=== PATIENT | female | born 1985 | race Caucasian/White ===

== ENCOUNTER 2019-07-05 13:25 | Emergency (ER) | payer BC, OTHER ==
--- NOTE | 2019-07-05 14:13 | ER Document Report ---
ED Medical Screen (RME) - General Chief Complaint: Numbness Stated Complaint: ARM/LEG NUMBNESS Time Seen by Provider: 07/05/19 14:09 Primary Care Provider: ARMAAN GODWIN MD [Primary Care Provider] - Follow up as needed Mode of Arrival: Ambulatory Information source: Patient Notes: 33-year-old female presented to ED for complaint of numbness to her arms and legs. She states she was driving down the road and all of a sudden she started getting numbness to her hands and feet arms and legs. She states she has had this about 2 years ago but it was concerning because it felt almost like there was something crawling under her skin this time. She states she was recently diagnosed with bacterial vaginosis and was started on medications for 5 days ago. She states that sensation is less now but she can still feel it. 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 Last menstrual cycle to 02 July. Smokes marijuana and cigarettes. I have greeted and performed a rapid initial assessment of this patient. A comprehensive ED assessment and evaluation of the patient, analysis of test results and completion of medical decision making process will be conducted by an additional ED providers. TRAVEL OUTSIDE OF THE [place] IN LAST 30 DAYS: No Physical Exam - Vital signs Vitals: Temp Pulse Resp BP Pulse Ox 98.1 F 89 18 147/93 H 99 07/05/19 13:31 07/05/19 13:31 07/05/19 13:31 07/05/19 13:31 07/05/19 13:31 Course - Vital Signs Vital signs: Temp Pulse Resp BP Pulse Ox 98.1 F 89 18 147/93 H 99 07/05/19 13:31 07/05/19 13:31 07/05/19 13:31 07/05/19 13:31 07/05/19 13:31 Doctor's Discharge - Discharge Referrals: ARMAAN GODWIN MD [Primary Care Provider] - Follow up as needed
[2019-07-05 14:48] LABS: BASOPHILS % (AUTO) 0.5 % (0-2); TOTAL CELLS COUNTED % (AUTO) 100 %
[2019-07-05 14:54] LABS: APPEARANCE,URINE SLIGHTLY-CLOUDY; BILIRUBIN,URINE NEGATIVE (NEGATIVE); COLOR,URINE YELLOW; GLUCOSE, URINE NEGATIVE (NEGATIVE); KETONES,URINE NEGATIVE (NEGATIVE); PROTEIN,URINE NEGATIVE (NEGATIVE); URINE SPECIFIC GRAVITY 1.027; UROBILINOGEN,URINE NEGATIVE mg/dL (<2.0)
[2019-07-05 14:55] LABS: ABSOLUTE EOSINOPHILS # (AUTO) 0.1 10^3/uL (0.0-0.6); ABSOLUTE LYMPHOCYTES (AUTO) 2.3 10^3/uL (0.5-4.7); ABSOLUTE MONOCYTES (AUTO) 0.6 10^3/uL (0.1-1.4); HEMOGLOBIN 14.8 g/dL (12.0-15.5); LYMPHOCYTES % (AUTO) 33.4 % (13-45); MEAN CORPUSCULAR HEMOGLOBIN 32.3 pg (27.0-33.4); MEAN CORPUSCULAR HGB CONC 35.1 g/dL (32.0-36.0); MEAN CORPUSCULAR VOLUME 92 fl (80-97); PLATELET COUNT 321 10^3/uL (150-450); RED BLOOD COUNT 4.57 10^6/uL (3.72-5.28); SEGMENTED NEUTROPHILS % (AUTO) 57.1 % (42-78)
[2019-07-05 15:12] LABS: ALBUMIN 4.5 g/dL (3.5-5.0); ALKALINE PHOSPHATASE 83 U/L (38-126); ANION GAP 10 (5-19); ASPARTATE AMINO TRANSFERASE 36 U/L (14-36); BILIRUBIN,DIRECT 0.1 mg/dL (0.0-0.4); BILIRUBIN,TOTAL 0.5 mg/dL (0.2-1.3); BLOOD UREA NITROGEN 8 mg/dL (7-20); CALCIUM 9.6 mg/dL (8.4-10.2); CARBON DIOXIDE 25 mmol/L (22-30); CHLORIDE 104 mmol/L (98-107); GLUCOSE 78 mg/dL (75-110); POTASSIUM 3.8 mmol/L (3.6-5.0); TOTAL PROTEIN 8.1 g/dL (6.3-8.2)
[2019-07-05 17:40] VITALS: BP 123/86
--- NOTE | 2019-07-05 22:06 | ER Document Report ---
Entered by NAREN YANES SCRIBE 07/05/19 1726 Acting as scribe for:RYLEE SADLER DO ED General - General Chief Complaint: Numbness of Arm Stated Complaint: ARM/LEG NUMBNESS Time Seen by Provider: 07/05/19 14:09 Primary Care Provider: ARMAAN GODWIN MD [COMMUNITY BASED STAFF] - Follow up in 3-5 days Mode of Arrival: Ambulatory Information source: Patient Notes: Patient is a 33-year-old female who presents to the emergency department today with complaints of bilateral arm and leg numbness and tingling which began prior to arrival. Patient states she had just gotten into her car to drive home from work when the symptoms began. Patient states the symptoms lasted up until about the time that she arrived here which was about 15 minutes. Patient states after arrival here all of her symptoms subsided and she is completely back to baseline. Patient states she had something somewhat similar to this about 2 years ago. Patient states at that time she had just gotten out of bed and she had bilateral leg weakness which spontaneously went away as well. Patient states she does not feel like she was anxious or hyperventilating but she does mention that she noticed that after she first started feeling the symptoms she did begin to get nervous and the symptoms became worse. Patient states she was driving when this occurred and she had no weakness and was able to continue driving. Patient does admit to smoking cigarettes and smoking marijuana. Patient states she was smoking a cigarette when the symptoms began. TRAVEL OUTSIDE OF THE [place] IN LAST 30 DAYS: No - Related Data Allergies/Adverse Reactions: acetaminophen [From Percocet] Allergy (Verified 07/05/19 14:14) oxycodone [From Percocet] Allergy (Verified 07/05/19 14:14) Past Medical History - General Information source: Patient - Social History Smoking Status: Current Every Day Smoker Cigarette use (# per day): Yes Chew tobacco use (# tins/day): No Frequency of alcohol use: None Drug Abuse: Marijuana Lives with: Family Family History: Reviewed & Not Pertinent Patient has suicidal ideation: No Patient has homicidal ideation: No Past Surgical History: Reports: Hx Gynecologic Surgery - Review of Systems - Review of Systems Constitutional: No symptoms reported EENT: No symptoms reported Cardiovascular: No symptoms reported Respiratory: No symptoms reported Gastrointestinal: No symptoms reported Genitourinary: No symptoms reported Female Genitourinary: No symptoms reported Musculoskeletal: No symptoms reported Skin: No symptoms reported Hematologic/Lymphatic: No symptoms reported Neurological/Psychological: See HPI, Numbness - bilateral arms and legs, Tingling - bilateral arms and legs. denies: Weakness -: Yes All other systems reviewed and negative Physical Exam - Vital signs Vitals: Temp Pulse Resp BP Pulse Ox 98.1 F 89 18 147/93 H 99 07/05/19 13:31 07/05/19 13:31 07/05/19 13:31 07/05/19 13:31 07/05/19 13:31 Interpretation: Normal - General General appearance: Appears well, Alert - HEENT Head: Normocephalic, Atraumatic Eyes: Normal Pupils: PERRL - Respiratory Respiratory status: No respiratory distress Chest status: Nontender Breath sounds: Normal Chest palpation: Normal - Cardiovascular Rhythm: Regular Heart sounds: Normal auscultation Murmur: No - Abdominal Inspection: Normal Distension: No distension Bowel sounds: Normal Tenderness: Nontender Organomegaly: No organomegaly - Back Back: Normal, Nontender - Extremities General upper extremity: Normal inspection, Nontender, Normal color, Normal ROM, Normal temperature General lower extremity: Normal inspection, Nontender, Normal color, Normal ROM, Normal temperature, Normal weight bearing. No: Kate's sign - Neurological Neuro grossly intact: Yes Cognition: Normal Orientation: AAOx4 [place] Coma Scale Eye Opening: Spontaneous Rayo Coma Scale Verbal: Oriented [place] Coma Scale Motor: Obeys Commands [place] Coma Scale Total: 15 Speech: Normal Motor strength normal: LUE, RUE, LLE, RLE Sensory: Normal - Psychological Associated symptoms: Normal affect, Normal mood - Skin Skin Temperature: Warm Skin Moisture: Dry Skin Color: Normal Course - Re-evaluation Re-evalutation: 07/05/19 Patient with transient paresthesias of bilateral upper and lower extremities. It is fully resolved. No weakness. No lack of sensation at this time. Patient has no abnormalities on blood work. She has no abnormalities on exam. Patient is apparently had something similar in the past but that is resolved. Episode happened when in the car after work. Patient was apparently smoking. Otherwise, patient appears well and is neurovascularly intact. She would like to be discharged home and will follow-up with her primary care doctor. Return if any worsening or concerning symptoms. Understands and agrees with plan. Stable for discharge. - Vital Signs Vital signs: Temp Pulse Resp BP Pulse Ox 98.1 F 68 16 123/86 H 98 07/05/19 17:40 07/05/19 17:40 07/05/19 17:40 07/05/19 17:40 07/05/19 17:40 - Laboratory Result Diagrams: 07/05/19 14:18 07/05/19 14:18 Laboratory results interpreted by me: 07/05/19 14:18 Urine Blood MODERATE H Leukocyte Esterase Rfl SMALL H Discharge - Discharge Clinical Impression: Paresthesia Condition: Stable Disposition: HOME, SELF-CARE Instructions: Numbness or Paresthesia ([facility]) Additional Instructions: Please follow-up with your primary care doctor. Please return if you have any further concerns. Forms: Return to Work Referrals: ARMAAN GODWIN MD [COMMUNITY BASED STAFF] - Follow up in 3-5 days I personally performed the services described in the documentation, reviewed and edited the documentation which was dictated to the scribe in my presence, and it accurately records my words and actions.
== END 2019-07-05 17:40 | disposition home or self-care (01) ==
LOC: ER 13:25
DX: R20.2 Paresthesia of skin (principal); R20.0 Anesthesia of skin; F17.210 Nicotine dependence, cigarettes, uncomplicated; F12.10 Cannabis abuse, uncomplicated; Z88.8 Allergy status to other drugs, medicaments and biological substances; Z88.5 Allergy status to narcotic agent
CPT/HCPCS: 36415; 80053; 81001; 84443; 84703; 85025; 87086; 99284

== ENCOUNTER → 2020-04-02 | Outpatient (CLI) | payer OTHER ==
--- NOTE | 2020-04-02 15:13 | RADIOLOGY REPORT (SQ) ---
EXAM DESCRIPTION: HYSTERO CATH/INJECTION IMAGES COMPLETED DATE/TIME: 04/02/2020 3:03 pm REASON FOR STUDY: FEMALE INFERTILITY (N97.9) N97.9 FEMALE INFERTILITY, UNSPECIFIED COMPARISON: None. PROCEDURE: PRE-PROCEDURE: Procedure was explained to the patient. She was told to expect cramping du ring the procedure, and possible spotting post procedure. PROCEDURE: The cervix was prepped in sterile fashion. Under direct visual inspection, the cervix was cannulated with the hysterosalpingogram catheter and contrast injected. TECHNIQUE: Temporal fluoroscopic images acquired during the procedure stored to PACS. FLUOROSCOPY TIME: 32 seconds 8 images saved to PACS. LIMITATIONS: None. FINDINGS: UTERUS: No identified anomalies. No synechia. RIGHT ADNEXA: Normal size fallopian tube. Free spill of contrast into the peritoneal cavity. LEFT ADNEXA: Normal size fallopian tube. Free spill of contrast into the peritoneal cavity. POST PROCEDURE: The patient tolerated the procedure with no adverse effects. IMPRESSION: NORMAL HYSTEROSALPINGOGRAM. COMMENT: Study performed and interpreted by the radiologist. Quality ID [id number]: Final reports for procedures using fluoroscopy that document radiation exposure tres florina, or exposure time and number of fluorographic images (if radiation exposure indices are not avail able) TECHNICAL DOCUMENTATION: JOB ID: [id number] 2010 [employer]- All Rights Reserved Reading location - IP/workstation name: [email or web address]
--- NOTE | 2020-04-02 15:50 | RADIOLOGY REPORT (SQ) ---
EXAM DESCRIPTION: HYSTEROSALPINGOGRAM COMPLETE DATE/TIME: 04/02/2020 3:03 pm REASON FOR STUDY: FEMALE INFERTILITY (N97.9) N97.9 FEMALE INFERTILITY, UNSPECIFIED FINDINGS: Please see combined report for performance of procedure and radiologic supervision and int erpretation. IMPRESSION: Please see combined report for performance of procedure and radiologic supervision and i nterpretation. Reading location - IP/workstation name: [email or web address]
== END ==
LOC: RAD 13:10
PROVIDERS: ATTEND Obstetrics & Gynecology
DX: N97.9 Female infertility, unspecified (principal)
CPT/HCPCS: 58340; 74740